=== PATIENT | female | born 1985 | race African-American/Black ===

== ENCOUNTER 2018-06-20 21:00 | Inpatient (IN) ==
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
[2018-06-20] MEDS: Ketorolac Inj 30 MG/ML (IVP) Vial IV.PUSH SCH (23:38)
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
[2018-06-20] MEDS: Methocarbamol 500 MG Tablet PO SCH (23:52)
[2018-06-21] MEDS ORDERED: Chlorhexidine Gluconate 2% 1 Pack (2 Cloths) TOPICAL PRN ×2 (04:00)
[2018-06-21] MEDS ORDERED: Chlorhexidine Gluconate 2% 1 Pack (2 Cloths) TOPICAL SCH ×2 (04:00)
[2018-06-21 05:30] LABS: Baso % (Auto) 0.7 % (0.0-2.0); Eos # (Auto) 0.3 th/mm3 (0.0-0.4); Eos % (Auto) 4.7 % (0.0-4.0); Hematocrit 33.5 % (35.0-46.0); Hemoglobin 11.1 gm/dL (11.6-15.3); Lymph # (Auto) 1.4 th/mm3 (1.0-4.8); Lymph % (Auto) 21.3 % (9.0-44.0); Mean Corpuscular HGB Conc 33.1 % (32.0-36.0); Mean Corpuscular Hemoglobin 24.7 pg (27.0-34.0); Mean Corpuscular Volume 74.5 fL (80.0-100.0); Mono # (Auto) 0.5 th/mm3 (0.0-0.9); Mono % (Auto) 7.7 % (0.0-8.0); Neut # (Auto) 4.3 th/mm3 (1.8-7.7); Neut % (Auto) 65.6 % (16.0-70.0); Platelet Count 299 th/mm3 (150-450); White Blood Count 6.5 th/mm3 (4.0-11.0)
[2018-06-21] MEDS: Methocarbamol 500 MG Tablet PO SCH (05:30)
[2018-06-21] MEDS: Ketorolac Inj 30 MG/ML (IVP) Vial IV.PUSH SCH ×2 (05:30→10:42)
[2018-06-21 05:51] LABS: Anion Gap 7 meq/L (5-15); Blood Urea Nitrogen 9 mg/dL (7-18); Calcium 8.1 mg/dL (8.5-10.1); Carbon Dioxide 27.7 meq/L (21.0-32.0); Chloride 104 meq/L (98-107); Glomerular Filtration Rate Greater Than 89 mL/min (>89); Glucose,Random 78 mg/dL (74-106); Potassium 3.9 meq/L (3.5-5.1); Sodium 139 meq/L (136-145)
[2018-06-21] MEDS ORDERED: Famotidine 20 MG Tablet PO SCH (09:00)
[2018-06-21] MEDS ORDERED: Docusate Sodium 100 MG Capsule PO SCH (09:00)
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
[2018-06-21 19:49] VITALS: BP 115/56; PULSE 72; TEMP 98.8; O2SAT 100
[2018-06-21 20:04] VITALS: RESP 16
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
== END 2018-06-21 21:10 | disposition home or self-care (01) ==
LOC: N03 21:00
PROVIDERS: ADMIT Surgery Trauma Surgery; ATTEND Surgery Trauma Surgery